=== PATIENT | male | born 1980 | race Two or more races ===

== ENCOUNTER 2021-01-20 12:18 | Emergency (ER) | payer OTHER ==
[~2021-01-20] VITALS: Ht 172.7 cm; Wt 77.1 kg
[2021-01-20] MEDS ORDERED: IBUPROFEN800 MG PO (14:50)
[2021-01-20] MEDS ORDERED: PROAIR HFA8.5 GM INH (14:50)
== END 2021-01-20 17:35 | disposition home or self-care (01) ==
LOC: ER1 12:18
DX: Z23 Encounter for immunization (principal); U07.1 COVID-19; J12.82 Pneumonia due to coronavirus disease 2019; E11.9 Type 2 diabetes mellitus without complications; Z90.49 Acquired absence of other specified parts of digestive tract; Z90.89 Acquired absence of other organs
CPT/HCPCS: 0240U; 71045; 87081; 87880; 99283; M0239